=== PATIENT | female | born 1980 | race Caucasian/White ===

== ENCOUNTER → 2016-12-20 | Outpatient (CLI) | payer MEDICARE, MEDICAID ==
[~2016-12-20] MED LIST: ACET-784 NG; AUD NEB; BISA10S PR; BUME1TAB17 PO; CARB200T6 NG; CLOP75 NG; CLOR15TA2 NG; DIPH25 NG; DOCU250C91 NG; KDUR10 NG; METO25 NG; MONT10TA21 NG; OS500 NG; TOPI100T37 NG; [UNRECOGNIZED DRUG - CODE] NG
== END | disposition home or self-care (01) ==
LOC: RADPV 09:03
PROVIDERS: ATTEND Internal Medicine
DX: R13.10 Dysphagia, unspecified (principal); I10 Essential (primary) hypertension; I25.2 Old myocardial infarction; J18.9 Pneumonia, unspecified organism; R62.50 Unspecified lack of expected normal physiological development in childhood; Z93.1 Gastrostomy status
CPT/HCPCS: 74230; 92611; G8996; G8997; G8998

== ENCOUNTER → 2017-03-05 | Outpatient (CLI) | payer MEDICARE, MEDICAID ==
[2017-03-05 14:23] VITALS: BP 123/86
== END | disposition home or self-care (01) ==
LOC: SRCNTR 13:39
PROVIDERS: ATTEND Internal Medicine Critical Care Medicine
DX: G80.8 Other cerebral palsy (principal); R56.9 Unspecified convulsions
CPT/HCPCS: G0463